=== PATIENT | male | born 1960 | race Hispanic/Latino ===

== ENCOUNTER 2024-02-16 11:47 | Outpatient (CLI) | payer OTHER | END 2024-02-16 11:48 | disposition home or self-care (01) | LOC: NAV RAD 11:47 | PROVIDERS: ATTEND Family Medicine | DX: I11.9 Hypertensive heart disease without heart failure (principal) | CPT/HCPCS: 71046 ==

== ENCOUNTER 2024-07-07 20:42 | Emergency (ER) | payer OTHER ==
[2024-07-07] MEDS ORDERED: Acetaminophen 325 MG TAB ONE (21:08)
[2024-07-07] MEDS ORDERED: Bacitracin Zinc Ointment 30 gm TUBE ONE (21:09)
[2024-07-07] MEDS ORDERED: Boostrix 0.5 ML (Tdap) VIAL (>/=7 yrs of age) ONE (21:09)
== END 2024-07-07 21:29 | disposition home or self-care (01) ==
LOC: NAV ERS 20:42
DX: S50.812A Abrasion of left forearm, initial encounter (principal); S50.811A Abrasion of right forearm, initial encounter; I10 Essential (primary) hypertension; V89.2XXA Person injured in unspecified motor-vehicle accident, traffic, initial encounter; W22.10XA Striking against or struck by unspecified automobile airbag, initial encounter
CPT/HCPCS: 90471; 90715